=== PATIENT | male | born 1975 | race Caucasian/White ===

== ENCOUNTER 2016-11-28 15:24 | Emergency (ER) | payer OTHER ==
[~2016-11-28 15:24] MED LIST: DOCUSATE CALCI100 MG PO; LEVAQUIN500 MG PO; NO MEDICATIONS; NORCO 5/3251 TA2 PO; NORCO 5/3251 TAB PO
[2016-11-28] MEDS ORDERED: KLONOPIN1 M1 PO (16:57)
[2016-11-28] MEDS ORDERED: LAMICTAL150 M1 PO (16:59)
[2016-11-28] MEDS ORDERED: CYMBALTA30 M1 PO (16:59)
[2016-11-28] MEDS ORDERED: MOBIC7.5 M2 PO (16:59)
[2016-11-28] MEDS ORDERED: LYRICA100 MG/CAP PO (16:59)
[2016-11-28] MEDS ORDERED: REGLAN5 M1 PO (17:00)
[2016-11-28] MEDS ORDERED: TIVICAY50 M1 PO (17:01)
[2016-11-28] MEDS ORDERED: OMEPRAZOLE40 M2 PO (17:01)
[2016-11-28] MEDS ORDERED: SEROQUEL50 M1 PO (17:01)
[2016-11-28] MEDS ORDERED: TRUVADA 200 MG1 EAC1 PO (17:02)
[2016-11-28] MEDS ORDERED: VALACYCLOVIR500 M1 PO (17:02)
[2016-11-28 17:17] LABS: BASO % 0.2 % (0-2); EOS % 0.7 % (0-7); EOSINOPHIL ABSOLUTE COUNT 0.1 tho/cmm (0.0-0.7); HCT-HEMATOCRIT 43.4 % (36.0-53.5); HGB-HEMOGLOBIN 14.9 gm/dl (13.5-17.0); IMMATURE GRANULOCYTES ABSOLUTE 0.07 tho/cmm (0-0.03); IMMATURE GRANULOCYTES PERCENT 0.4 % (0-0.3); LYMPH % 7.6 % (20-45); LYMPH ABSOLUTE COUNT 1.5 tho/cmm (0.8-4.5); MCH (MEAN CORPUSCULAR HGB) 32.7 pg (28.0-32.0); MCHC MEAN CORPUSCULAR HGB CONC 34.3 % (32.0-36.0); MCV (MEAN CELL VOLUME) 95.4 fl (82.0-96.0); MEAN PLATELET VOLUME 9.9 cmc (9.4-12.4); MONO % 5.2 % (0-12); NEUTROPHIL ABSOLUTE COUNT 16.8 tho/cmm (1.6-8.0); NEUTROPHIL-AUTOMATED 16.8 tho/cmm (1.6-8.0); NEUTROPHILS % 85.9 % (40-80); PLATELET COUNT 318 tho/cmm (150-450); RED BLOOD COUNT 4.55 mil/cmm (4.40-5.70); RED CELL DISTRIBUTION WIDTH 13.9 % (12.4-16.4); WHITE BLOOD COUNT 19.5 tho/cmm (4.0-10.0)
[2016-11-28 17:33] LABS: ALBUMIN 3.3 g/dl (3.5-5.0); ALKALINE PHOSPHATASE 119 U/L (33-138); ALT/SGPT 26 U/L (12-78); BILIRUBIN,TOTAL 0.4 mg/dl (0.0-1.5); BLOOD UREA NITROGEN 17 mg/dl (6-24); CALCIUM 8.6 mg/dl (8.5-10.5); CARBON DIOXIDE-VENOUS 24 mmol/L (22-32); CHLORIDE 113 mmol/l (96-110); CREATININE 0.91 mg/dl (0.60-1.30); GLUCOSE 98 mg/dL (70-110); LIPASE 101 U/L (73-393); SODIUM 144 mmol/L (135-145); eGFR VALUE FOR BLACK >90 mL/Min
[2016-11-28 17:35] LABS: ANION GAP 11 mmol/L (0-20); AST/SGOT 26 U/L (10-40); POTASSIUM 4.1 mmol/L (3.7-5.1)
[2016-11-28 17:44] LABS: URINE BILIRUBIN NEGATIVE (NEG); URINE BLOOD LARGE (NEG); URINE GLUCOSE (UA) NEGATIVE (NEG); URINE KETONE NEGATIVE (NEG); URINE LEUKOCYTE ESTERASE NEGATIVE (NEG); URINE NITRITE NEGATIVE (NEG); URINE PROTEIN NEGATIVE (NEG); URINE SPECIFIC GRAVITY 1.005 (1.003-1.030)
[2016-11-28 17:50] LABS: URINE APPEARANCE CLEAR; URINE COLOR YELLOW
[2016-11-28 17:51] LABS: URINE MUCUS 1+
[2016-11-28 17:52] LABS: URINE RBC 30-50 /[HPF] (0-5)
[2016-11-28] MEDS ORDERED: NORCO 5-325 TA1 EACH PO (18:57)
[2016-11-28] MEDS ORDERED: ZOFRAN ODT4 MG PO (18:57)
== END 2016-11-28 19:23 ==
LOC: EDMED 15:24
PROVIDERS: Emergency Medicine
DX: N20.0 Calculus of kidney (principal); Z21 Asymptomatic human immunodeficiency virus [HIV] infection status; Z88.2 Allergy status to sulfonamides; F17.200 Nicotine dependence, unspecified, uncomplicated
CPT/HCPCS: J1170; J2405; Q9967